=== PATIENT | female | born 2000 | race Caucasian/White ===

== ENCOUNTER 2025-10-12 19:55 | Emergency (ER) | payer OTHER, SELFPAY ==
[2025-10-12 20:09] VITALS: BP 122/89
[2025-10-13] MEDS: MOTRIN 600 MG PO (00:36)
--- NOTE | 2025-10-20 18:08 | ED.GENMED ---
History of Present Illness
General
Chief Complaint: Skin Surface Trauma
Source: patient
Exam Limitations: none
Time Seen by Provider: 10/13/25 00:11
Nursing documentation reviewed up to this point in time: agreed with
History of Present Illness
History of Present Illness:
25-year-old female today was using a knife and excellently cut her left middle finger, she had a small laceration to her left middle finger which is not bleeding. Her tetanus is up-to-date. There is no numbness tingling or weakness.
Review of Systems
Review of Systems
Allergies reviewed?: Yes
All Other Systems: Not applicable
Phy Exam
Physical Exam
Physical Exam:
GENERAL: Alert , in no apparent distress, comfortable at rest
HEAD: NCAT
CV: 2+ radial pulse, cap refill intact
NEUROLOGICAL: Alert and oriented, no focal neuro deficits, , 5/5 strength, sensation intact, ambulation slight limp right leg
SKIN: Warm and dry, small laceration approximately half a centimeter to the left middle finger tip, no active bleeding
MUSCULOSKELETAL: Full painless range of motion of the left middle finger, laceration, no soft tissue swelling.
PSYCH: Normal and appropriate interaction.
Course
Orders/Labs/Results
Orders:
Orders
10/13/25 00:24
Ibuprofen [Motrin] 600 mg PO NOW STA
Vital Signs
Initial and Last Documented VS:
Initial Vital Signs
Temp Pulse Resp BP Pulse Ox
37.2 C 96 18 122/89 100
10/12/25 20:09 10/12/25 20:09 10/12/25 20:09 10/12/25 20:09 10/12/25 20:09
Last Documented Vital Signs
Temp Pulse Resp BP Pulse Ox
37.2 C 96 18 122/89 100
10/12/25 20:09 10/12/25 20:09 10/12/25 20:09 10/12/25 20:09 10/12/25 20:09
MDM/Problems Addressed
Differential Diagnosis Includes:
Laceration, avulsion, abrasion
MDM/Problems Addressed:
25-year-old female with a superficial laceration to her left middle finger from a knife today. Her tetanus is up-to-date. Neurovascularly intact. The wound was essentially closed with the patient was quite concerned about it. Irrigated and
closed with glue and Steri-Strips.
*Pulse Oximetry
SaO2: 100
Oxygen Mode of Delivery: Room air
Patient hypoxic: no (100)
*Critical Care Note
Total Time (30-74mins, 75-104mins- exclusive of procedures): Not Applicable
ED Attending Note
-
Portions of this chart may have been created with voice recognition software.� Occasional wrong word or��sound alike� substitutions may have occurred due to the inherent limitations of voice recognition software.
Discharge Plan
Departure
Patient Disposition: Home (Routine Discharge)
Date of Disposition: 10/13/25
Time of Disposition: 00:47
Patient with high blood pressure during this ER visit?: No
Condition: Fair
Covid-19: Not Applicable
Discharge Problem:
Finger laceration
Instructions: Laceration Repair With Glue (DC)
Referrals:
NONE,* [Family Provider, Internal Medicine]
Activity Restrictions/Additional Instructions:
Keep the laceration clean and dry for 48 hours if you can. You can remove this dressing tomorrow and just reapply a Band-Aid. You can use the finger splint to help avoid bending your finger for a couple of days if you need to. The Steri-Strips
and glue will peel up, you can trim the Steri-Strips and leave the center in place as long as possible to keep your wound closed.
Return for any concerns.
Interventions
Interventions:
*General Assessment Last Done: 10/12/25 20:09
*Neglect/Abuse Screening Last Done: 10/12/25 20:09
*ED COVID-19 Vaccine History Last Done: 10/12/25 20:13
*ED Influenza Vaccine History Last Done: 10/12/25 20:09
[facility] Fall Risk Assessment Tool Last Done: 10/12/25 23:12
*Risk Screen - Suicide (C-SSRS) Last Done: 10/12/25 20:09
*Nursing Disposition Last Done: 10/13/25 01:18
ED-Skin Assessment Last Done: 10/12/25 23:12
Discharge Date and Time
Discharge Date/Time: 10/13/25 01:18
Print Language: [id number]
== END 2025-10-13 01:18 | disposition home or self-care (01) ==
LOC: EMR 19:55
PROVIDERS: EMERGENCY PHYSICIAN Student in an Organized Health Care Education/Training Program
DX: S61.213A Laceration without foreign body of left middle finger without damage to nail, initial encounter (principal); W26.0XXA Contact with knife, initial encounter
CPT/HCPCS: 99283; 12001